=== PATIENT | male | born 1995 | race African-American/Black ===

== ENCOUNTER 2021-04-15 19:33 | Emergency (ER) | payer SELFPAY ==
[2021-04-15 19:46] VITALS: BP 130/71; PULSE 111; RESP 16; TEMP 38.5; O2SAT 100
--- NOTE | 2021-04-15 19:51 | ED.SKABFB ---
HPI - Skin/Abscess/Foreign Bdy General Chief complaint: Skin/Abscess/Foreign Body Stated complaint: Insect Bite Time Seen by Provider: 04/15/21 19:50 Source: patient and RN notes reviewed Mode of arrival: ambulatory Limitations: no limitations History of Present Illness HPI narrative: Garcia is a 25-year-old male patient who complains of redness and swelling to the left lateral rib area. Patient states he thought he had a bite on Wednesday and the redness and swelling has increased. Patient denies any fever at home. Patient denies any body aches or any other symptoms. Patient just complains of redness and swelling to the left lateral Related Data Allergies Allergy/AdvReac Type Severity Reaction Status Date / Time No Known Allergies Allergy Verified 04/15/21 19:52 Review of Systems Review of Systems: CONSTITUTIONAL: Denies body aches, fever, chills, or sweats. EYES: Denies visual changes, redness, or discharge. ENT: Denies rhinorrhea, congestion, sore throat, or otalgia. CARDIOVASCULAR: Denies chest pain, palpitations, or edema. RESPIRATORY: Denies cough or dyspnea. GASTROINTESTINAL: Denies abdominal pain, nausea, vomiting, or diarrhea. GENITOURINARY: Denies dysuria or hematuria. SKIN: Denies rash, itching, redness and swelling left rib. MUSCULOSKELETAL: Denies back pain, joint pain, or myalgia. NEUROLOGIC: Denies headache, numbness, tingling, or weakness. PSYCH: Denies depression or anxiety. All systems reviewed & are unremarkable except as noted in HPI and below PMFSH Comments At time of signature, I have reviewed and agree with nursing past medical, surgical, social and family history unless otherwise noted. Please see nursing chart for further information. There is no relevant family history pertinent to the presenting complaint Exam Narrative: GENERAL: Well-appearing, well-nourished, and in no acute distress. HEAD: Normocephalic, atraumatic. EYES: EOMI. No redness or drainage. Conjunctivae normal. ENT: Mucous membranes pink and moist. Nares clear. No rhinorrhea. TMs normal bilaterally. Throat normal. Uvula midline. NECK: Normal AROM. Supple. No lymphadenopathy. CHEST: No respiratory distress. Clear to auscultation. HEART: Regular rate and rhythm. No murmur appreciated. Normal peripheral pulses. ABDOMEN: Soft, nontender, nondistended, normal active bowel sounds. MUSCULOSKELETAL: No bony tenderness. EXTREMITIES: Normal range of motion. No edema. SKIN: Warm, dry, no rash. Capillary refill normal. Normal skin turgor. Erythemic 5 cm area to the left lateral ribs, nonfluctuant, hard to touch, NEURO: No focal deficits. Alert and oriented x3. Gait steady. PSYCH: Normal affect. No signs of depression or anxiety. Course Vital Signs Vital signs: Vital Signs Temperature 38.5 C H 04/15/21 19:46 Pulse Rate 111 H 04/15/21 19:46 Respiratory Rate 16 04/15/21 19:46 Blood Pressure 130/71 04/15/21 19:46 Pulse Oximetry 100 04/15/21 19:46 Temperature 38.5 C H 04/15/21 19:46 Pulse Rate 111 H 04/15/21 19:46 Respiratory Rate 16 04/15/21 19:46 Blood Pressure 130/71 04/15/21 19:46 Pulse Oximetry 100 04/15/21 19:46 Reviewed MDM - Skin/Abscess/Foreign Bdy MDM Narrative Medical decision making narrative: Patient has an abscess to the left lateral ribs. The area is nonfluctuant. Greater than 5 cm of erythema noted. The area is firm to touch. Patient was instructed that we will give him Rocephin 1 g IM. We will send in a prescription for Bactrim twice daily to start his first dose tonight. Patient is to follow-up with his primary care physician tomorrow. If if erythema increases, or he has any other symptoms such as high fever or any other symptoms he should go to the ER immediately. This was stressed to the patient multiple times. Patient is refusing to go to the ER. Differential Diagnosis Differential diagnosis: Likely abscess of skin or subcutaneous tissue, cellulitis and contact derm
[2021-04-15] MEDS: cefTRIAXone 1 GM, LIDOCAINE HCL 1% LOCAL INJ 2.1 ML IM (19:59)
== END 2021-04-15 20:04 | disposition home or self-care (01) ==
PROVIDERS: Emergency Provider Nurse Practitioner Family
DX: L02.213 Cutaneous abscess of chest wall (principal); L03.313 Cellulitis of chest wall
CPT/HCPCS: 96372; 99203; 99213; G0463; J0696

== ENCOUNTER 2021-05-07 19:45 | Emergency (ER) | payer SELFPAY ==
--- NOTE | ~2021-05-07 | XR_ITS ---
EXAMINATION: XR chest 2V DATE: 05/07/2021 20:26 INDICATION: Chest pain TECHNIQUE: PA and lateral views of the chest are obtained. COMPARISON: None available FINDINGS: The lungs are free of acute opacities. There is no pleural effusion or pneumothorax. The ca rdiomediastinal silhouette is normal. The visualized bones and soft tissues are unremarkable. IMPRESSION: 1. No acute cardiopulmonary abnormality. Reviewed, dictated and finalized at location F. IC ADMINISTRATOR
[2021-05-07 19:59] VITALS: BP 127/79; PULSE 98; RESP 16; TEMP 38.2; O2SAT 100
--- NOTE | 2021-05-07 20:13 | ED.URI ---
HPI - URI/Sore Throat General Chief Complaint: Upper Respiratory Infection Stated Complaint: sob Time Seen by Provider: 05/07/21 20:05 Source: patient and RN notes reviewed Mode of arrival: ambulatory Limitations: no limitations History of Present Illness HPI Narrative: Patient presents today complaining of a 2-day history of cough, chest pain, shortness of breath, nasal congestion and body aches. States he was seen in the ER 2 days ago at [facility], checked for COVID-19, but did not stay for the results of left without a diagnosis. States he started getting sick 2 weeks ago with the body aches and congestion, but the additional symptoms just started 2 days ago. He has been taking Mucinex today without relief. MD elicited complaint: cough and other (Shortness of breath) Related Data Allergies Allergy/AdvReac Type Severity Reaction Status Date / Time No Known Allergies Allergy Verified 05/07/21 20:14 Review of Systems Review of Systems: CONSTITUTIONAL: Denies fever, chills, or sweats.+ Body aches EYES: Denies visual changes, redness, or discharge. ENT: Denies rhinorrhea, sore throat, or otalgia.+ Congestion CARDIOVASCULAR: Denies chest pain, palpitations, or edema. RESPIRATORY: + Cough, shortness of breath, chest wall pain GASTROINTESTINAL: Denies abdominal pain, nausea, vomiting, or diarrhea. GENITOURINARY: Denies dysuria or hematuria. SKIN: Denies rash, itching, or wounds. MUSCULOSKELETAL: Denies back pain, joint pain, or myalgia. NEUROLOGIC: Denies headache, numbness, tingling, or weakness. PSYCH: Denies depression or anxiety. PMFSH Comments At time of signature, I have reviewed and agree with nursing past medical, surgical, social and family history unless otherwise noted. Please see nursing chart for further information. There is no relevant family history pertinent to the presenting complaint Exam Narrative: GENERAL: Well-appearing, well-nourished, and in no acute distress. HEAD: Normocephalic, atraumatic. EYES: EOMI. No redness or drainage. Conjunctivae normal. ENT: Mucous membranes pink and moist. Nares congested. No rhinorrhea. TMs normal bilaterally. Throat normal. Uvula midline. NECK: Normal AROM. Supple. No lymphadenopathy. CHEST: No respiratory distress. Diminished in the bilateral bases, otherwise clear. HEART: Regular rate and rhythm. No murmur appreciated. Normal peripheral pulses. EXTREMITIES: Normal range of motion. No edema. SKIN: Warm, dry, no rash. Capillary refill normal. Normal skin turgor. NEURO: No focal deficits. Alert and oriented x3. Gait steady. PSYCH: Normal affect. No signs of depression or anxiety. Course Vital Signs Vital signs: Vital Signs Temperature 100.8 F H 05/07/21 19:59 Pulse Rate 98 05/07/21 19:59 Respiratory Rate 16 05/07/21 19:59 Blood Pressure 127/79 05/07/21 19:59 Pulse Oximetry 100 05/07/21 19:59 Temperature 100.8 F H 05/07/21 19:59 Pulse Rate 98 05/07/21 19:59 Respiratory Rate 16 05/07/21 19:59 Blood Pressure 127/79 05/07/21 19:59 Pulse Oximetry 100 05/07/21 19:59 Reviewed. Pt has been instructed to follow up with his PCP regarding his elevated blood pressure today. MDM - URI/Sore Throat Differential Diagnosis Differential diagnosis: Likely upper respiratory infection, viral infection, influenza and other (COVID-19) Lab Data Attestation: I reviewed the patient's lab results. Lab results narrative: Rapid COVID-19 test negative Imaging Data Radiologist's impression: ITS Impressions Chest X-Ray 05/07/21 20:37 IMPRESSION: 1. No acute cardiopulmonary abnormality. Critical Care Time Critical Care Time Critical Care Time: No Discharge Plan Discharge Clinical Impression: Upper respiratory infection Patient Disposition: Home, Self-Care Condition: Stable Instructions: Upper Respiratory Infection (DC) Additional Instructions: Your rapid COVID-19 test is negative today. Your sym
== END 2021-05-07 21:03 | disposition home or self-care (01) ==
PROVIDERS: Emergency Provider Nurse Practitioner
DX: J06.9 Acute upper respiratory infection, unspecified (principal); Z20.822 Contact with and (suspected) exposure to COVID-19
CPT/HCPCS: 71046; 87426; 99213; C9803; G0463